=== PATIENT | female | born 1965 | race Caucasian/White ===

== ENCOUNTER 2022-11-10 07:21 | Day surgery (SDC) | payer OTHER ==
[~2022-11-10] VITALS: Ht 170.2 cm; Wt 158.8 kg
[2022-11-10] MEDS ORDERED: MIDAZOLAM HCL 5 MG/5 ML VIAL ONE ×2 (07:30→09:45)
[2022-11-10] MEDS ORDERED: fentaNYL CITRATE/PF 100 MCG/2 ML AMP ONE ×2 (07:30→09:45)
[2022-11-10] MEDS ORDERED: DIPHENHYDRAMINE INJ 50 MG/ML VIAL ONE (09:45)
[2022-11-10 13:52] VITALS: BP_SYST 144
== END 2022-11-10 11:20 | disposition home or self-care (01) ==
LOC: SDS 07:21 → SMU 07:22 → SDS 11:20
PROVIDERS: ATTEND Internal Medicine
DX: Z12.11 Encounter for screening for malignant neoplasm of colon (principal); D12.3 Benign neoplasm of transverse colon; K29.50 Unspecified chronic gastritis without bleeding; Z79.899 Other long term (current) drug therapy; Z20.822 Contact with and (suspected) exposure to COVID-19
CPT/HCPCS: 45385; 43239; 87426; 87081; 36415; 88305; 88312; 88313; 99152; 99153; G0378; J1200; J2250; J3010